=== PATIENT | female | born 1985 ===

== ENCOUNTER 2018-09-14 11:43 | Emergency (ER) | payer OTHER ==
[~2018-09-14] VITALS: Ht 157.5 cm; Wt 73.5 kg
[2018-09-14] MEDS ORDERED: PRENATABS FA T1 EACH (11:49)
== END 2018-09-14 14:41 | disposition home or self-care (01) ==
LOC: ER 11:43
DX: O20.0 Threatened abortion (principal); O26.891 Other specified pregnancy related conditions, first trimester; K29.70 Gastritis, unspecified, without bleeding; Z34.01 Encounter for supervision of normal first pregnancy, first trimester